=== PATIENT | female | born 1955 | race Caucasian/White ===

== ENCOUNTER 2020-02-20 14:56 | Outpatient (CLI) | payer MEDICARE, MEDICAID ==
[~2020-02-20] VITALS: Ht 170 cm; Wt 63.6 kg
[~2020-02-20 14:56] MED LIST: ASPI-808 PO; LEVO125T6 PO; MTP25TSR PO; MULT-1136 PO; SIMV80TA21 PO; TRZ50T PO; VENL150T PO
== END 2020-02-20 14:58 ==
LOC: PREOP 14:56
PROVIDERS: ATTEND Urology
DX: Z01.818 Encounter for other preprocedural examination (principal); N81.10 Cystocele, unspecified; R32 Unspecified urinary incontinence

== ENCOUNTER 2020-02-26 06:00 | Day surgery (SDC) | payer MEDICARE, MEDICAID ==
[2020-02-26] MEDS ORDERED: LACTATED RINGERS 1,000 ML IV ONE (06:30)
[2020-02-26] MEDS ORDERED: ONDANSETRON 4 MG/2 ML (SDV) Z0FRAN ONE ×2 (06:39→07:06)
[2020-02-26] MEDS ORDERED: cefTRIAXone 1,000 MG IV (ROCEPHIN) VIAL ONE (06:39)
[2020-02-26] MEDS ORDERED: WATER (STERILE) FOR INJECTION 10 ML ONE (06:39)
[2020-02-26] MEDS ORDERED: SCOPOLAMINE 1.5 MG (TRANSDERM-SCOP) PATCH ONE (06:39)
[2020-02-26] MEDS ORDERED: FAMOTIDINE 20MG/2ML IV (PEPCID) ONE (06:42)
[2020-02-26] MEDS ORDERED: ONDANSETRON 4 MG/2 ML (SDV) Z0FRAN IV ONE (06:46)
[2020-02-26] MEDS ORDERED: SCOPOLAMINE 1.5 MG (TRANSDERM-SCOP) PATCH TOP ONE (06:47)
[2020-02-26] MEDS ORDERED: FAMOTIDINE 20MG/2ML IV (PEPCID) IV ONE (07:00)
[2020-02-26] MEDS ORDERED: LIDOCAINE PF 2% 5 ML (XYLOCAINE) VIAL ONE (07:06)
[2020-02-26] MEDS ORDERED: fentaNYL INJECTION 100 MCG/2 ML AMP ONE ×2 (07:06→07:38)
[2020-02-26] MEDS ORDERED: MIDAZOLAM 2 MG/2 ML (VERSED) VIAL ONE (07:06)
[2020-02-26] MEDS ORDERED: proPOfol 200 MG/20 ML (DIPRIVAN) VIAL IV ONE (07:06)
[2020-02-26] MEDS ORDERED: KETOROLAC 30 MG/ML VIAL ONE (07:06)
[2020-02-26] MEDS ORDERED: SEVOFLURANE (ULTANE) 15 ML INHAL SOLN ONE ×4 (07:06→08:14)
[2020-02-26] MEDS ORDERED: ESTRADIOL VAGINAL CREAM 42.5 GM (ESTRACE) VG ONE ×2 (07:16→08:05)
[2020-02-26] MEDS ORDERED: LIDOCAINE/EPI 1%-1:100,000 (XYLOCAINE) 20ML ONE (07:16)
[2020-02-26] MEDS ORDERED: cefTRIAXone FOR IV USE 1,000 MG in WATER (STERILE) FOR INJECTION 10 ML IV ONE (07:30)
[2020-02-26] MEDS ORDERED: LIDOCAINE/EPI 1%-1:100,000 (XYLOCAINE) 20ML INJ ONE (07:44)
[2020-02-26] MEDS ORDERED: NEOSTIGMINE 3 MG/3 ML VIAL ONE (08:04)
[2020-02-26] MEDS ORDERED: GLYCOPYRROLATE 0.2 MG/ML (ROBINUL) 2 ML VIAL ONE (08:04)
[2020-02-26] MEDS ORDERED: LABETALOL HCL 20 MG/4 ML VIAL ONE (08:06)
[2020-02-26] MEDS ORDERED: ROCURONIUM 10 MG/ML 5 ML SYRINGE IV ONE (08:06)
[2020-02-26] MEDS ORDERED: D5 LR IV SOLUTION 1,000 ML IV ONE (14:31)
--- NOTE | 2020-02-26 20:49 | OPERATIVE REPORT ---
DATE OF SERVICE: 02/26/2020 PREOPERATIVE DIAGNOSIS: Cystocele and incontinence. POSTOPERATIVE DIAGNOSIS: Cystocele and incontinence. OPERATION PERFORMED: Anterior repair, pubovaginal sling and cystoscopy. SURGEON: Josiah Almodovar MD. ANESTHESIA: General. COMPLICATIONS: None. DESCRIPTION OF PROCEDURE: Under satisfactory general anesthesia and the patient in extended lithotomy position, genitalia were prepped and draped in the usual sterile fashion with a separate vaginal prep. Rogers catheter was inserted and the bladder was drained. A self-retaining retractor was applied. Noted a small benign looking lesion in the anterior vaginal wall. I excised it and sent it for pathology. There was also some nonabsorbable suture protruding from the vaginal wall and I removed them all. I infiltrated the anterior vaginal wall with lidocaine and epinephrine, made an incision vertically, carried down through to the fascia and extended laterally. The fascia was approximated with several interrupted 2-0 Vicryl giving excellent support to the bladder. Again, I made sure there was no leftover suture from the previous surgery. I then passed the Solyx device on both sides using the described technique. The sling was sitting nicely under the mid urethra with no twist or tension and passage of a hemostat easily between it and underlying tissue. I removed the Rogers catheter to perform cystoscopy to confirm the integrity of the bladder, ureteral orifices and urethra and no foreign body was visualized and feeding the sling under the mid urethra. I left the bladder at least half full to perform a manual Valsalva maneuver after removing the cystoscope and it was negative. I reinserted the Rogers catheter draining again clear fluid. I excised the excess tissue of the vaginal wall. I then approximated the anterior vaginal mucosa with a running 2-0 Vicryl Rapide type suture. Estrace two grams vaginal pack was inserted. Needle, sponge and instrument count was correct x2. Estimated blood loss was less than 50 mL, none of which was replaced. The patient tolerated the procedure and anesthesia well and was sent to the recovery room in a stable condition. Job ID: [id number] DocumentID: [id number] Dictated Date: 02/26/2020 08:26:42 Police Lieutenant Patrol Date: 02/26/2020 09:13:03 Dictated By: JOSIAH ALMODOVAR MD
[2020-02-27] MEDS ORDERED: D5 LR IV SOLUTION 1,000 ML IV ONE (03:54)
[2020-02-27] MEDS ORDERED: LEVOFLOXACIN 500 MG/D5W 100 ML (PRE-MIX) IV ONE ×2 (06:10→10:30)
--- NOTE | 2020-02-27 06:58 | Anesthesia-General Post-Op ---
General Patient Condition Mental Status/LOC: Same as Preop Cardiovascular: Satisfactory Nausea/Vomiting: Absent Respiratory: Satisfactory Pain: Controlled Complications: Absent Post Op Complications Complications None Follow Up Care/Instructions Patient Instructions None needed. Anesthesia/Patient Condition Patient Condition Patient is doing well, no complaints, stable vital signs, no apparent adverse anesthesia problems. No complications reported per nursing. D/C home per [facility] Criteria: Yes LAMONT PUCKETT CRNA Feb 27, 2020 06:58
[2020-02-27] MEDS ORDERED: SCOPOLAMINE 1.5 MG (TRANSDERM-SCOP) PATCH TOP SCH (07:00)
[2020-02-27 08:46] VITALS: BP 115/53
--- NOTE | 2020-02-27 10:00 | NUR ---
To room after pt reports voiding. Pt reports adequately emptying. 600ml clear yellow urine in hat. Bladder scan performed per this RN, 94ml residual noted.
[2020-02-27] MEDS ORDERED: FAMOTIDINE 20MG/2ML IV (PEPCID) IVP ONE (10:15)
[2020-02-27] MEDS ORDERED: ONDANSETRON 4 MG/2 ML (SDV) Z0FRAN IVP ONE (10:15)
[2020-02-27] MEDS ORDERED: HYDROcodone/APAP 5 MG/325 MG (LORTAB) TAB PO PRN (10:30)
[2020-02-27] MEDS ORDERED: D5 LR IV SOLUTION 1,000 ML IV SCH (10:30)
--- NOTE | 2020-02-27 10:51 | NUR ---
Pt up ambulating in hallways at this time.
--- NOTE | 2020-02-27 11:08 | NUR ---
Dr. Lerner called and updated on pt status. will come round on pt within the hr.
--- NOTE | 2020-02-27 12:00 | NUR ---
Dr Lerner here to see pt. Discharge orders rec'd.
--- NOTE | 2020-02-27 12:16 | Progress Note - Urology ---
Progress Note-Urology Progress Notes/Assess & Plan Progress/Assessment & Plan VOIDING AND EMPTYING WELL. DRY. HAPPY. HOME WITH INSTRUCTIONS Final Diagnosis CYSTOCELE AND INCONTINENCE BOB ALMODOVAR MD Feb 27, 2020 12:16
--- NOTE | 2020-02-27 12:18 | Discharge Inst-Urology ---
Discharge Inst-Urology Reconcile Patient Problems Problems Reviewed?: Yes Final Diagnosis CYSTOCELE AND INCONTINENCE Patient Instructions/Follow Up Plan/Assessment/Instructions Please make appointment to been seen in office in 2 weeks. Rest till then Keep bowels soft and moving Stay off ASA Showers no bath Increase oral fluids for 48 hours and then as needed. Diet as tolerated. If questions or concerns contact your physician Or seek help at emergency department. BOB ALMODOVAR MD Feb 27, 2020 12:18
--- NOTE | 2020-02-27 12:38 | NUR ---
Discharge instructions explained to pt with copy provided to pt along with prescription. Pt notified of follow up appt made. Pt verbalizes understanding of instructions and signs to verify. Denies questions or concerns.
--- NOTE | 2020-02-27 12:45 | NUR ---
Pt ambulates off unit to private vehicle with all personal belongings, accompanied by RN. No s/s of distress noted.
== END 2020-02-27 12:45 | disposition home or self-care (01) ==
LOC: SDC 06:00 → WS 02-27 07:38 → SDC 02-27 12:45
PROVIDERS: ATTEND Urology
DX: N81.10 Cystocele, unspecified (principal); N89.8 Other specified noninflammatory disorders of vagina; R32 Unspecified urinary incontinence; I10 Essential (primary) hypertension; E03.9 Hypothyroidism, unspecified; Z79.899 Other long term (current) drug therapy; Z88.5 Allergy status to narcotic agent; Z88.8 Allergy status to other drugs, medicaments and biological substances; Z90.710 Acquired absence of both cervix and uterus
CPT/HCPCS: 57240; 57288; 87081; 88305; 94664; C1771

== ENCOUNTER → 2021-05-24 | Outpatient (CLI) | payer MEDICARE, MEDICAID ==
--- NOTE | 2021-05-24 09:23 | Diagnostic Imaging Report ---
INDICATION: Right knee pain. COMPARISON: None available. TECHNIQUE: Three radiographs of the right knee dated 05/24/2021. FINDINGS: No acute fracture or dislocation. No destructive osseous process. Severe medial joint space narrowing with moderate osteophyte formation. Mild lateral joint space narrowing with minimal osteophyte formation. No significant knee joint effusion. Small superior patellar enthesophytes. No suspicious radiopaque foreign body. IMPRESSION: No acute osseous abnormality with moderate degenerative changes, greatest within the medial compartment. Dictated by: Dictated on workstation # [id number]
== END ==
LOC: RAD FS 09:04
PROVIDERS: ATTEND Nurse Practitioner
DX: M17.11 Unilateral primary osteoarthritis, right knee (principal)
CPT/HCPCS: 73562

== ENCOUNTER → 2021-12-08 | Outpatient (CLI) | payer MEDICARE, MEDICAID ==
[~2021-12-08] VITALS: Ht 170.2 cm; Wt 63.6 kg
[~2021-12-08] MED LIST changes: +ASPI81TA16 PO; +FLUT9.9S NS; +MIRA25TA PO
[2021-12-08 10:02] VITALS: BP 115/58
[2021-12-08 10:25] LABS: HEMATOCRIT 37 % (35-52); HEMOGLOBIN 12.6 g/dL (11.5-16.0); MEAN CORPUSCULAR HEMOGLOBIN 31 pg (25-34); MEAN CORPUSCULAR HGB CONC 34 g/dL (32-36); MEAN CORPUSCULAR VOLUME 91 fL (80-99); MEAN PLATELET VOLUME 9.4 fL (9.0-12.2); PLATELET COUNT 209 10^3/uL (130-400); WHITE BLOOD COUNT 4.7 10^3/uL (4.3-11.0)
[2021-12-08 10:35] LABS: BILIRUBIN,URINE NEGATIVE (NEGATIVE); CLARITY,URINE CLEAR; COLOR,URINE YELLOW; GLUCOSE, URINE (UA) NEGATIVE (NEGATIVE); KETONES,URINE NEGATIVE (NEGATIVE); LEUKOCYTE ESTERASE ,URINE TRACE (NEGATIVE); NITRITE,URINE NEGATIVE (NEGATIVE); PH,URINE 5.5 (5-9); PROTEIN,URINE 1+ (NEGATIVE)
[2021-12-08 10:48] LABS: PROTHROMBIN TIME PATIENT 13.8 SEC (12.2-14.7)
[2021-12-08 10:48] LABS: BACTERIA,URINE FEW /HPF
[2021-12-08 10:50] LABS: ALBUMIN 4.2 GM/DL (3.2-4.5); ERYTHROCYTE SEDIMENTATION RATE 16 MM/HR (0-30); POTASSIUM 3.8 MMOL/L (3.6-5.0)
[2021-12-08 10:52] LABS: CALCIUM 9.3 MG/DL (8.5-10.1)
[2021-12-08 10:53] LABS: TOTAL PROTEIN 6.9 GM/DL (6.4-8.2)
[2021-12-08 10:55] LABS: BILIRUBIN,TOTAL 0.4 MG/DL (0.1-1.0)
[2021-12-08 10:57] LABS: CREATININE SERUM 1.02 MG/DL (0.60-1.30)
--- NOTE | 2021-12-08 11:09 | Diagnostic Imaging Report ---
INDICATION: Preoperative total knee replacement. TIME OF EXAM: 10:49 AM No prior studies are available for comparison. Heart size is stable. Lungs show some hyperinflation consistent with COPD. There are postop changes in the left lung apex. There appears to be some interstitial scarring left mid and lower lung field. No infiltrate, effusion or pneumothorax is detected. IMPRESSION: Chronic changes. No acute abnormality is detected. Dictated by: Dictated on workstation # [id number]
== END ==
LOC: PREOP 08:26
PROVIDERS: ATTEND Orthopaedic Surgery
DX: Z01.818 Encounter for other preprocedural examination (principal); M17.11 Unilateral primary osteoarthritis, right knee
CPT/HCPCS: 36415; 71046; 80053; 81000; 82308; 85027; 85610; 85652; 86850; 86900; 86901; 87081; 87088; 93005

== ENCOUNTER 2021-12-15 05:54 | Inpatient (IN) | payer MEDICARE, MEDICAID ==
--- NOTE | 2021-12-09 07:04 | HISTORY AND PHYSICAL ---
DATE OF SERVICE: ADMISSION HISTORY AND PHYSICAL This will be for inpatient admission on 12/15/2021 for right total knee arthroplasty. The patient will require regular inpatient admission due to pain management, need for physical therapy and gait abnormalities. HISTORY OF PRESENT ILLNESS: The patient is a 66-year-old female with progressively worsening right knee pain. She reports activity limitations because of the knee. She has undergone treatment with injections, which provided relief only for a couple of weeks. She has undergone bilateral hip arthroplasty with good results. She denies recent injuries. Radiographs reveal severe medial and patellofemoral arthrosis. Due to functional impairment, the patient elected to proceed with surgical intervention. REVIEW OF SYSTEMS: No chest pain, no shortness of breath, no dysuria. PAST MEDICAL HISTORY: Brain aneurysm and hypertension. PAST SURGICAL HISTORY: Brain aneurysm and hip replacements. FAMILY HISTORY: Noncontributory. PRIMARY CARE PROVIDER: [facility]. MEDICATIONS: Metoprolol, levothyroxine, Effexor, trazodone, simvastatin, tramadol, Celebrex. ALLERGIES: DEMEROL AND MORPHINE. SOCIAL HISTORY: The patient denies tobacco use. Drinks alcohol occasionally. PHYSICAL EXAMINATION: GENERAL: The patient is a well-developed, well-nourished, in no acute distress. HEENT: Normocephalic, atraumatic. Pupils are equal, round, reactive lateral. Oropharynx is clear. NECK: Supple, no lymphadenopathy. LUNGS: Clear to auscultation bilaterally. HEART: Regular rate and rhythm. ABDOMEN: Soft, nontender, nondistended. EXTREMITIES: The right knee demonstrates varus alignment. She ambulates with an antalgic gait. Her range of motion is 0/4/120. There is no varus valgus laxity. Negative anterior and posterior drawer. IMPRESSION: Severe right knee osteoarthritis, unresponsive to conservative measures. PLAN: Right total knee arthroplasty. The risks, benefits, options, ramifications and recovery have been discussed at length with the patient. She understands and wishes to proceed. Job ID: [id number] DocumentID: [id number] Dictated Date: 11/29/2021 10:41:02 Soccer Coach Date: 11/29/2021 11:24:09 Dictated By: TRINO SANDOVAL MD
[~2021-12-15] VITALS: Ht 170 cm; Wt 63.6 kg
[2021-12-15] VITALS (12 sets, daily range): BP systolic 114–139; BP diastolic 48–64
[2021-12-15] MEDS: LACTATED RINGERS 1,000 ML IV PRN ×2 (06:30→08:05)
[2021-12-15] MEDS ORDERED: CEFUROXIME INJECTION 1,500 MG in NS (IVPB) 50 ML IV ONE (06:30)
[2021-12-15] MEDS ORDERED: fentaNYL INJ 100 MCG/2 ML AMP ONE (06:52)
[2021-12-15] MEDS ORDERED: LIDOCAINE PF 2% 5 ML (XYLOCAINE) VIAL ONE (06:52)
[2021-12-15] MEDS ORDERED: NEOSTIGMINE 3 MG/3 ML VIAL ONE (06:52)
[2021-12-15] MEDS ORDERED: proPOfol 200 MG/20 ML (DIPRIVAN) VIAL IV ONE (06:52)
[2021-12-15] MEDS ORDERED: ROCURONIUM 50 MG/5 ML (ZEMURON) VIAL IV ONE (06:52)
[2021-12-15] MEDS ORDERED: MIDAZOLAM 2 MG/2 ML (VERSED) VIAL ONE ×2 (06:52→08:25)
[2021-12-15] MEDS ORDERED: GLYCOPYRROLATE 0.2 MG/ML (ROBINUL) 2 ML VIAL ONE (06:52)
[2021-12-15] MEDS ORDERED: ONDANSETRON 4 MG/2 ML (SDV) Z0FRAN ONE (06:52)
[2021-12-15] MEDS ORDERED: TRANEXAMIC ACID 100 MG/ML 10 ML INJECTION ONE (06:53)
[2021-12-15] MEDS ORDERED: BUPIVACAINE 0.5% 30 ML (SENSORCAINE) VIAL ONE (06:54)
[2021-12-15] MEDS ORDERED: fentaNYL PCA 1,000 MCG/100 ML IV PRN (07:30)
[2021-12-15] MEDS ORDERED: ONDANSETRON 4 MG/2 ML (SDV) Z0FRAN IVP PRN ×2 (07:30→09:30)
[2021-12-15] MEDS ORDERED: NALOXONE 0.4 MG/ML 1 ML (NARCAN) VIAL IV PRN (07:30)
--- NOTE | 2021-12-15 07:37 | Progress Note-Post Operative ---
Post-Operative Progess Note Surgeon (s)/Ophthalmologist (s) Surgeon TRINO SANDOVAL MD Ophthalmologist: Armando Cooper Pre-Operative Diagnosis right knee primary osteoarthritis Post-Operative Diagnosis right knee primary osteoarthritis Procedure & Operative Findings Date of Procedure 12/15/21 Procedure Performed/Findings right total knee arthroplasty Anesthesia Type GETA Estimated Blood Loss Estimated blood loss (mL): minimal Specimens/Packing Specimens Removed none Packing: none TRINO SANDOVAL MD Dec 15, 2021 07:37
--- NOTE | 2021-12-15 07:37 | Progress Note-Pre Operative ---
Pre-Operative Progress Note H&P Reviewed The H&P was reviewed, patient examined and no changes noted. Date Seen by Provider: Dec 15, 2021 Time Seen by Provider: 07:25 Date H&P Reviewed: Dec 15, 2021 Time H&P Reviewed: 07:11 Pre-Operative Diagnosis: right knee primary osteoarthritis TRINO SANDOVAL MD Dec 15, 2021 07:36
--- NOTE | 2021-12-15 07:40 | D/C HH Face to Face Order ---
D/C Face to Face Orders Reconcile Patient Problems Problems Reviewed?: Yes Instructions for Patient Via [facility], Patient Instructions/FollowUp: three weeks Physician to follow Patient: three weeks Discharge Diet for Home: Regular Diet Patient Data-Allergies,Ht & Wt Patient Allergies: Coded Allergies: meperidine (Verified Allergy, Severe, ARM SWELLED, 02/20/20) morphine (Verified Allergy, Mild, N/V, 02/20/20) Home Health Need/Face to Face Date of Face to Face: Dec 15, 2021 Clinical Findings: Muscle weakness, Pain with ambulation I have seen Pt [id number]: Yes Discharged To: Home Diagnosis/Conditions: right total knee arthroplasty Patient is Homebound due to: Muscle weakness, Pain w/ambulation Homebound Status Due to the above stated illness, injury or surgical procedure (medical condition or diagnosis) and associated clinical findings, the patient is homebound because of his/her inability to leave home except with aid of a supportive device and/or person AND leaving the home requires a considerable and taxing effort or is medically contraindicated. Pt req the following assistanc: Walker [facility] Health Nursing Orders Home Health Services Order: Physical Therapy-Evaluate & Treat DC right knee sai and apply steri strips 12/29/21 Home Health Infusion Therapy Line Start Date: Dec 15, 2021 Therapy Orders Therapy Orders: Physical Therapy, PT to assess for OT Therapy Specific Orders: Eval assistive deivces, Teach enviro modifications/safety, Gait training, Increase strength/endurance, Provider maintenance therapy, Restore ROM Certify Stmt I certify that this patient is under my care and that I, a nurse practitioner or a physician; a customer care assistant working with me, had a face to face encounter that - meets the physician face to face encounter requirements with this patient as dated. TRINO SANDOVAL MD Dec 15, 2021 07:40
[2021-12-15] MEDS ORDERED: INTRA-ARTICULAR IU ONE ×5 (08:00)
[2021-12-15] MEDS ORDERED: ESMOLOL 100 MG/10 ML (BREVIBLOC) VIAL ONE (08:13)
[2021-12-15] MEDS ORDERED: PROPOFOL INJECTION 50 ML IV ONE (08:36)
--- NOTE | 2021-12-15 09:54 | Progress Note ---
Standard Progress Note Progress Notes/Assess & Plan Date Seen by a Provider: Dec 15, 2021 Time Seen by a Provider: 09:53 Progress/Assessment & Plan no complaints Spinal in effect radiographs--HW well positioned without fracture RLE--2 plus DP pulse with brick cap refill s/p RTKA mobilize as able TRINO SANDOVAL MD Dec 15, 2021 09:54
--- NOTE | 2021-12-15 09:57 | Diagnostic Imaging Report ---
INDICATION: Right knee surgery. Time of Exam: 9:28 AM 2 views right knee redemonstrate postoperative changes total knee arthroplasty. Prosthetic elements appear to be in good position. No fracture or loosening is seen. Overlying skin sai are noted. IMPRESSION: Satisfactory postop appearance to the right knee. Dictated by: Dictated on workstation # [id number]
[2021-12-15] MEDS: SENNA W/DOCUSATE (SENOKOT S) TABLET PO SCH ×2 (12:04→20:28)
[2021-12-15] MEDS: NS IV 1000 ML 1,000 ML IV SCH ×3 (12:04→23:37)
--- NOTE | 2021-12-15 13:46 | Physical Therapy Evaluation ---
PT Evaluation-General Medical Diagnosis Admission Date Dec 15, 2021 at 05:54 Medical Diagnosis: right TKA Onset Date: Dec 15, 2021 Therapy Diagnosis Therapy Diagnosis: impaired mobility, strength, endurance Precautions Precautions/Isolations: Fall Prevention, Standard Precautions Weight Bear Status Right Lower Extremity: Right Weight Bearing/Tolerated Referral Physician: Kenneth Reason for Referral: Evaluation/Treatment Medical History Additional Medical History PAST MEDICAL HISTORY: Brain aneurysm and hypertension. PAST SURGICAL HISTORY: Brain aneurysm and hip replacements. Reviewed History: Yes Social History Current Living Status: Alone Entry Into Home: Level Entry Prior Prior Level of Function SCALE: Activities may be completed with or without assistive devices. 2-Rzitkoirbw-jwdvtci completes the activity by him/herself with no assistance from a helper. 5-Set-up or Clean-up Assistance-helper sets up or cleans up; patient completes activity. Admire assists only prior to or following the activity. 4-Supervision or Touching Assistance-helper provides verbal cues and/or touching/steadying and/or contact guard assistance as patient completes activity. Assistance may be provided throughout the activity or intermittently. 3-Partial/Moderate Assistance-helper does LESS THAN HALF the effort. Admire lifts, holds or supports trunk or limbs, but provides less than half the effort. 2-Substantial/Maximal Assistance-helper does MORE THAN HALF the effort. Admire lifts or holds trunk or limbs and provides more than half the effort. 6-Oukmbsflr-feghyx does ALL the effort. Patient does none of the effort to complete the activity. Or, the assistance of 2 or more helpers is required for the patient to complete the activity. If activity was not attempted, code reason: 7-Patient Refused. 9-Not Applicable-not attempted and the patient did not perform the activity before the current illness, exacerbation or injury. 10-Not Attempted due to Environmental Limitations-(lack of equipment, weather restraints, etc.). 88-Not Attempted due to Medical Conditions or Safety Concerns. Bed Mobility: 6 Transfers (B,C,W/C): 6 Gait: 6 Stairs: 6 Indoor Mobility (Ambulation): Independent Stairs: Independent PT Evaluation-Current Subjective Patient in bed pre tx, agrees to PT, has no pain at rest. Patient has had a spinal and nerve block (per patient) Pt/Family Goals to be independent at home Objective Patient Orientation: Person, Place, Situation Attachments: IV ROM/Strength ROM Lower Extremities right knee flexion 90 degrees, has full extension Sensory Hearing: Functional Sensation Right Lower Extremit: Impaired Sensation Left Lower Extremity: Impaired Transfers Roll Left to Right (QC): 6 Sit to Lying (QC): 3 Lying to Sitting/Side of Bed(Q: 3 Patient needed min to mod assist for supine <-> sit, she was not able to stand yet, neither leg could support any weight Balance Sitting Static: Normal Sitting Dynamic: Normal Treatment RLE total knee protocol x10 (AP, HS, SAQ, SLR), AAROM with all exercises Assessment/Needs Patient in bed post tx with nurse call, phone, tray, all needs met. Patient has impaired mobility, strength, endurance. Her spinal and nerve block need to wear off before she is going to be able to get out of bed. Rehab Potential: Fair PT Retirement Goals Operations Dispatcher Goals PT Retirement Goals Time Frame: Dec 22, 2021 Roll Left & Right (QC): 6 Sit to Lying (QC): 6 Lying-Sitting on Side/Bed(QC): 6 Sit to Stand (QC): 4 Chair/Mfc-co-Kcqwl Xfer(QC): 4 Walk 10 feet (QC): 4 Walk 50ft with 2 Turns (QC): 4 Walk 150 ft (QC): 4 PT Plan Problem List Problem List: Activity Tolerance, Functional Strength, Safety, Balance, Gait, Transfer, Bed Mobility, ROM Treatment/Plan Treatment Plan: Continue Plan of Care Treatment Plan: Bed Mobility, Education, Functional Activity Merrill, Functional Strength, Gait, Safety, Therapeutic Exercise, Transfers Treatment Duration: Dec 22, 2021 Frequency: 11 times per week Estimated Hrs Per Day: .25 hour per day Patient and/or Family Agrees t: Yes Safety Risks/Education Patient Education: Correct Positioning, Safety Issues Teaching Recipient: Patient Teaching Methods: Demonstration, Discussion Response to Teaching: Reinforcement Needed Discharge Recommendations Plan Patient will perform bed mobility and transfer training, balance and endurance training, functional strengthening, stair training, gait training, and education, to improve functional mobility and independence at home. Therapy Discharge Recommendati: Home & Family, Post Acute PT Time/GCodes Time In: 1306 Time Out: 1318 Total Billed Treatment Time: 12 Total Billed Treatment 1 visit OLGA DHILLON PT Dec 15, 2021 13:46
[2021-12-15] MEDS: CEFUROXIME INJECTION 750 MG in NS (IVPB) 50 ML IV SCH ×2 (15:31→23:28)
--- NOTE | 2021-12-15 16:02 | OPERATIVE REPORT ---
DATE OF SERVICE: 12/15/2021 PREOPERATIVE DIAGNOSIS: Right knee primary osteoarthritis. POSTOPERATIVE DIAGNOSIS: Right knee primary osteoarthritis. PROCEDURE: Right total knee arthroplasty. SURGEON: Alli Sandoval MD MEDICAL ONCOLOGY PHYSICIAN: Armando Cooper, who assisted throughout the procedure and closed by Dr. Falcon. TOURNIQUET TIME: Approximately 56 minutes at 300 mmHg. ESTIMATED BLOOD LOSS: Minimal. DRAINS: None. COMPLICATIONS: None. POSTOPERATIVE PLAN: Routine total knee arthroplasty protocol. MATERIALS: Microport cemented size 4 femur, cemented size 4 tibia with a 10 mm insert and cemented size 32 patellar button. STATEMENT OF MEDICAL NECESSITY: The patient is a 66-year-old female with longstanding progressive right knee pain. Radiographs revealed severe medial and patellofemoral arthrosis. She had undergone treatment with injections, anti-inflammatories and rest without relief. Due to functional impairment and failure to improve with conservative measures, the patient elected to proceed with surgical intervention. DESCRIPTION OF PROCEDURE: After risks and benefits of procedure were discussed and questions were answered, an informed consent was signed and placed on chart. The operative site was confirmed in the preoperative holding area initialed by the surgeon. The patient was then transferred to the operating room. After adequate levels of general endotracheal anesthetic were obtained, a timeout was called, confirming the operative site. Right lower extremity was prepped and draped in the usual sterile fashion. Knee joint was flexed and the leg was elevated, tourniquet was inflated to 300 mmHg. Standard anterior approach was utilized. Hemostasis was obtained with cautery. A medial parapatellar arthrotomy was performed leaving 1 cm cuff on the patella for later reattachment. A portion of the fat pad was resected. A subperiosteal release was performed on the proximal medial tibia being careful to stay on the bony surface. The ACL was resected. Intramedullary guide was passed into the femoral canal. The distal cutting block was placed, and distal cut was made. The femur sized to a size 4. The 4 cutting block was placed parallel to the epicondylar axis and cuts were made from posterior to anterior. Subperiosteal release was then carefully performed on the posterior distal femur, being careful to stay on the bony surface. Intramedullary guide was then passed into the tibia. Cutting block was placed. Drop amandeep transected the intermalleolar axis and the cut was made. The 4 cutting block was placed. Again, the drop amandeep transected the intermalleolar axis and the proximal tibia was prepared with the drill and keel punch. A subperiosteal release was performed on the posterior distal femur, being careful to stay on the bony surface with curved osteotome prior to prepping the tibia. The femoral trial was placed and the trochlear cut was made. The patella was then prepared by resecting 10 mm off the undersurface. The peg guide was placed. The peg holes were drilled. Trials were inserted with 10 mm insert and 35 button. Full extension was easily obtained under 20 degrees of flexion with gravity was easily obtained. There was no anterior/posterior or medial/lateral laxity in flexion or extension. The trials were removed. The joint was irrigated with pulse lavage. The periarticular block was placed in the posterior capsule, medial and lateral retinaculum extensor mechanism subcutaneous tissues. The joint was further irrigated. Bone ends were irrigated and dried. The tibial baseplate was cemented into position. The superior surface was irrigated and dried and the polyethylene insert was placed. Distal femur was irrigated and dried and the femoral prosthesis was cemented into position. Excessive cement was removed. The knee was brought out into full extension until the cement had cured. The undersurface of the patella was irrigated and dried. The patellar button was cemented into position. Excessive cement was removed. Once cement had cured, the knee was taken through range of motion. Full extension was easily obtained under 20 degrees of flexion with gravity was easily obtained. There was no anterior/posterior or medial/lateral laxity in flexion or extension and the patella tracked well. The joint was further irrigated with pulse lavage. A #2 Tevdek was used to reapproximate the arthrotomy in vuzxeh-kg-gdalp interrupted fashion. Subcutaneous tissues were irrigated. The knee was flexed. The repair was stable. A total of 6 liters of pulse lavage were used throughout the procedure. A 0 Vicryl was used to deep subcutaneous layer, 2-0 Vicryl for the superficial subcutaneous layer, sai used on the skin. A soft dressing was applied. The tourniquet was deflated. The patient was transferred to the recovery room awake and in stable condition. Job ID: [id number] DocumentID: [id number] Dictated Date: 12/15/2021 09:31:42 Elevator Erector Helper Date: 12/15/2021 16:01:45 Dictated By: ALLI SANDOVAL MD
[2021-12-15] MEDS: oxyCODONE/APAP 5/325MG (PERCOCET 5) TABLET PO PRN ×2 (18:25→20:28)
[2021-12-15] MEDS: diphenhydrAMINE 50 MG/ML INJ (BENADRYL) IVP PRN (23:28)
[2021-12-16 00:14] VITALS: BP 108/57
[2021-12-16] MEDS: oxyCODONE/APAP 5/325MG (PERCOCET 5) TABLET PO PRN ×8 (02:24→22:55)
[2021-12-16 03:48] VITALS: BP 125/57
[2021-12-16 06:33] LABS: HEMOGLOBIN 9.6 g/dL (11.5-16.0)
[2021-12-16 07:44] VITALS: BP 139/66
--- NOTE | 2021-12-16 08:05 | Progress Note ---
Standard Progress Note Progress Notes/Assess & Plan Date Seen by a Provider: Dec 16, 2021 Time Seen by a Provider: 08:04 Progress/Assessment & Plan no complaints Spinal in effect radiographs--HW well positioned without fracture RLE--2 plus DP pulse with brick cap refill s/p RTKA mobilize as able Final Diagnosis no complaints Vital Signs Date Time Temp Pulse Resp B/P (MAP) Pulse Ox O2 Delivery O2 Flow Rate FiO2 12/16/21 07:44 37.2 95 18 139/66 (90) 94 Room Air 12/16/21 03:48 37.1 102 20 125/57 (79) 92 Room Air 12/16/21 00:14 36.5 92 18 108/57 (74) 95 Room Air 12/15/21 20:15 Room Air 12/15/21 19:34 36.7 87 18 128/60 (82) 97 Room Air 12/15/21 16:03 36.6 73 20 134/64 (87) 98 Room Air 12/15/21 12:05 35.9 70 20 124/59 (80) 98 Room Air 12/15/21 10:44 36.0 78 20 126/60 (82) 98 Room Air 12/15/21 10:20 Room Air 12/15/21 10:20 36.1 20 119/60 (79) 100 Room Air 12/15/21 10:15 Room Air 12/15/21 10:10 20 121/52 (75) 100 Room Air 12/15/21 10:00 Room Air 12/15/21 10:00 20 128/57 (80) 100 Room Air 12/15/21 09:50 20 121/56 (77) 100 Room Air 12/15/21 09:45 Room Air 12/15/21 09:40 20 114/48 (70) 99 Room Air 12/15/21 09:30 Room Air 12/15/21 09:30 20 126/53 (77) 98 Room Air 12/15/21 09:18 Room Air 12/15/21 09:18 36.1 20 122/54 (76) 100 Room Air I & O 12/16/21 07:00 Intake Total 4140 ml Output Total 950 ml Balance 3190 ml Laboratory Tests Test 12/16/21 06:09 Range/Units Hemoglobin 9.6 L 11.5-16.0 g/dL Hematocrit 29 L 35-52 % RLE--dressing intact. Intact DF and PF of toes and ankle. Sensation intact throughout s/p RTKA PT/OT TRINO SANDOVAL MD Dec 16, 2021 08:05
--- NOTE | 2021-12-16 08:45 | Physical Therapy Daily Note ---
PT Daily Note-Current Subjective Patient in recliner pre tx, agrees to PT, has 7/10 pain in right knee. Appearance Patient in recliner post tx with nurse call, phone, tray, all needs met. Mental Status Patient Orientation: Person, Place, Situation Attachments: Polar Pack, IV Transfers SCALE: Activities may be completed with or without assistive devices. 9-Tfsjznouto-widppaw completes the activity by him/herself with no assistance from a helper. 5-Set-up or Clean-up Assistance-helper sets up or cleans up; patient completes activity. [place] assists only prior to or following the activity. 4-Supervision or Touching Assistance-helper provides verbal cues and/or touching/steadying and/or contact guard assistance as patient completes activit y. Assistance may be provided throughout the activity or intermittently. 3-Partial/Moderate Assistance-helper does LESS THAN HALF the effort. [place] lifts, holds or supports trunk or limbs, but provides less than half the effort. 2-Substantial/Maximal Assistance-helper does MORE THAN HALF the effort. [place] lifts or holds trunk or limbs and provides more than half the effort. 2-Mhdadjinh-oscxrt does ALL the effort. Patient does none of the effort to complete the activity. Or, the assistance of 2 or more helpers is required for the patient to complete the activity. If activity was not attempted, code reason: 7-Patient Refused. 9-Not Applicable-not attempted and the patient did not perform the activity before the current illness, exacerbation or injury. 10-Not Attempted due to Environmental Limitations-(lack of equipment, weather restraints, etc.). 88-Not Attempted due to Medical Conditions or Safety Concerns. Sit to Stand (QC): 4 Chair/Dma-sf-Ptbzh Xfer(QC): 4 Weight Bearing Right Lower Extremity: Right Weight Bearing/Tolerated Gait Training Distance: 40' Walk 10 feet (QC): 4 Gait Persons Needed: 1 Gait Assistive Device: FWW slow, antalgic, decreased right knee flexion Exercises Supine Ex: Ankle pumps, Quad Set, Heel Slides (AAROM), Straight leg raise (AAROM) Supine Reps: 10 (done in recliner with legs elevated) Seated Therapy Exercises: Long arc quads Seated Reps: 10 Treatments transfers, ambulation, TKA exercise Assessment Current Status: Fair Progress spinal has worn off and patient can now bear weight on her legs and ambulate, increased pain though PT Air Brake Operator Goals Air Brake Operator Goals PT Air Brake Operator Goals Time Frame: Dec 22, 2021 Roll Left & Right (QC): 6 Sit to Lying (QC): 6 Lying-Sitting on Side/Bed(QC): 6 Sit to Stand (QC): 4 Chair/Tbv-qm-Ometn Xfer(QC): 4 Walk 10 feet (QC): 4 Walk 50ft with 2 Turns (QC): 4 Walk 150 ft (QC): 4 PT Plan Problem List Problem List: Activity Tolerance, Functional Strength, Safety, Balance, Gait, Transfer, Bed Mobility, ROM Treatment/Plan Treatment Plan: Continue Plan of Care Treatment Plan: Bed Mobility, Education, Functional Activity [place], Functional Strength, Gait, Safety, Therapeutic Exercise, Transfers Treatment Duration: Dec 22, 2021 Frequency: 11 times per week Estimated Hrs Per Day: .25 hour per day Patient and/or Family Agrees t: Yes Safety Risks/Education Patient Education: Gait Training, Transfer Techniques, Correct Positioning, Safety Issues Teaching Recipient: Patient Teaching Methods: Demonstration, Discussion Response to Teaching: Reinforcement Needed Time/GCodes Time In: 08 Time Out: 08 Total Billed Treatment Time: 16 Total Billed Treatment 1 visit FA OLGA VALLE PT Dec 16, 2021 08:44
[2021-12-16] MEDS: ASPIRIN E.C. 81 MG (ECOTRIN) TAB PO SCH (08:53)
[2021-12-16] MEDS: SENNA W/DOCUSATE (SENOKOT S) TABLET PO SCH ×2 (08:53→20:37)
[2021-12-16] MEDS: ENOXAPARIN INJECTION 30 MG/0.3 ML SYR SC SCH ×2 (08:54→20:38)
--- NOTE | 2021-12-16 09:50 | Occupational Therapy Eval ---
OT Evaluation-General/PLF Medical Diagnosis Admission Date Dec 15, 2021 at 05:54 Medical Diagnosis: right TKA Onset Date: Dec 15, 2021 Therapy Diagnosis Therapy Diagnosis: reduced adl status Precautions Precautions/Isolations: Fall Prevention, Standard Precautions Referral Physician: Kenneth Persaud Reason: Evaluation/Treatment Medical History Pertinent Medical History: HTN Additional Medical History brain aneurysm Current History post op day 1, s/p R TKA. Per patient, she lives alone in an entry level account representative apartment. She was indep with adls and iadls prior to admission. She was not using any AD at baseline. Reviewed History: Yes Social History Home: Apartment Current Living Status: Alone Entry Into Home: Level Entry ADL-Prior Level of Function SCALE: Activities may be completed with or without assistive devices. 1-Qhtmdlpokm-kxajvav completes the activity by him/herself with no assistance from a helper. 5-Set-up or Clean-up Assistance-helper sets up or cleans up; patient completes activity. [place] assists only prior to or following the activity. 4-Supervision or Touching Assistance-helper provides verbal cues and/or touching/steadying and/or contact guard assistance as patient completes activity. Assistance may be provided throughout the activity or intermittently. 3-Partial/Moderate Assistance-helper does LESS THAN HALF the effort. [place] lif ts, holds or supports trunk or limbs, but provides less than half the effort. 2-Substantial/Maximal Assistance-helper does MORE THAN HALF the effort. [place] lifts or holds trunk or limbs and provides more than half the effort. 2-Sytsxcxei-dzuuvz does ALL the effort. Patient does none of the effort to complete the activity. Or, the assistance of 2 or more helpers is required for the patient to complete the activity. If activity was not attempted, code reason: 7-Patient Refused. 9-Not Applicable-not attempted and the patient did not perform the activity before the current illness, exacerbation or injury. 10-Not Attempted due to Environmental Limitations-(lack of equipment, weather restraints, etc.). 88-Not Attempted due to Medical Conditions or Safety Concerns. Self Care: Independent Functional Cognition: Independent DME/Equipment: Bath Chair, Shower Drive Self: Yes OT Current Status Subjective Pt grimacing in pain at OT arrival; 02/16. RN in to deliver meds. Appearance Pt left sitting in recliner, all needs within reach. Mental Status/Objective Patient Orientation: Person, Place, Situation extra time for processing/responding Attachments: IV, Telemetry Current Glasses/Contacts: Yes Upper Extremity ROM WNL Upper Extremity Strength 3+/5 grossly ADL-Treatment Eating (QC): 6 Oral Hygiene (QC): 5 Pt grimacing in pain at OT arrival. She is tearful when situating self in recliner. Post set up, she was able to wash face, comb hair and brush teeth. Due to pain, pt declined any transfers or adls that would cause her to use RLE (LB dressing). Per physical therapy note, pt was CGA to stand. OT educated pt on care of incision during bathing tasks post discharge. Further education may be needed. She verbalizes that she will have her sister bring in all of her AE that she purchased in order to practice (if needed post discharge). Plan to assess LB dressing next session and determine if AE will be needed. Education OT Patient Education: Correct positioning, Purpose of tx/functional activities, Safety issues Teaching Recipient: Patient Teaching Methods: Discussion Response to Teaching: Verbalize Understanding, Reinforcement Needed OT Satellite Dish Repairer Goals Correction Goals Time Frame: Dec 25, 2021 Toileting Hygiene (QC): 4 Upper Body Dressing (QC): 5 Lower Body Dressing (QC): 4 On/Off Footwear (QC): 4 1=Demonstrate adherence to instructed precautions during ADL tasks. 2=Patient will verbalize/demonstrate understanding of assistive devices/modifications for ADL. 3=Patient will improve strength/tolerance for activity to enable patient to perform ADL's. OT Education/Plan Problem List/Assessment Assessment: Decreased Activ Tolerance, Decreased UE Strength, Impaired Cognition, Impaired Funct Balance, Impaired I ADL's, Impaired Self-Care Skills Discharge Recommendations Plan/Recommendations: Continue POC Treatment Plan/Plan of Care Treatment,Training & Education: Yes Patient would benefit from OT for education, treatment and training to promote independence in ADL's, mobility, safety and/or upper extremity function for ADL's. Plan of Care: ADL Retraining, Functional Mobility, Group Exercise/Act as Ind, UE Funct Exercise/Act Treatment Duration: Dec 25, 2021 Frequency: 5 times per week Estimated Hrs Per Day: .25 hour per day Agreement: Yes Rehab Potential: Fair Time/GCodes Start Time: 08:54 Stop Time: 09:09 Total Time Billed (hr/min): 15 Billed Treatment Time 1 visit Estefania Wyatt OT Dec 16, 2021 09:50
--- NOTE | 2021-12-16 11:00 | Physical Therapy Daily Note ---
PT Daily Note-Current Subjective Patient in recliner pre tx, agrees to PT, has 5/10 pain in right knee. Appearance Patient in recliner post tx with nurse call, phone, tray, all needs met. Mental Status Patient Orientation: Person, Place, Situation Attachments: Polar Pack, IV Transfers SCALE: Activities may be completed with or without assistive devices. 3-Fuqagbpqvi-acjjtyv completes the activity by him/herself with no assistance from a helper. 5-Set-up or Clean-up Assistance-helper sets up or cleans up; patient completes activity. [place] assists only prior to or following the activity. 4-Supervision or Touching Assistance-helper provides verbal cues and/or touching/steadying and/or contact guard assistance as patient completes activit y. Assistance may be provided throughout the activity or intermittently. 3-Partial/Moderate Assistance-helper does LESS THAN HALF the effort. [place] lifts, holds or supports trunk or limbs, but provides less than half the effort. 2-Substantial/Maximal Assistance-helper does MORE THAN HALF the effort. [place] lifts or holds trunk or limbs and provides more than half the effort. 7-Sykyetxtt-mzoyoe does ALL the effort. Patient does none of the effort to complete the activity. Or, the assistance of 2 or more helpers is required for the patient to complete the activity. If activity was not attempted, code reason: 7-Patient Refused. 9-Not Applicable-not attempted and the patient did not perform the activity before the current illness, exacerbation or injury. 10-Not Attempted due to Environmental Limitations-(lack of equipment, weather restraints, etc.). 88-Not Attempted due to Medical Conditions or Safety Concerns. Sit to Stand (QC): 4 Chair/Ehv-pf-Csnac Xfer(QC): 4 SBA Weight Bearing Right Lower Extremity: Right Weight Bearing/Tolerated Gait Training Distance: 60' Walk 10 feet (QC): 4 Gait Persons Needed: 1 Gait Assistive Device: FWW slow, antalgic, stiff right knee, keeps it slightly flexed during ambulation Exercises Supine Ex: Quad Set Supine Reps: 15 (done in recliner with legs elevated) Seated Therapy Exercises: Ankle pumps, Long arc quads, Hamstring Curls Seated Reps: 15 Treatments transfers, ambulation, LE TKA exercises Assessment Current Status: Fair Progress improved pain, patient limits ROM due to pain still PT Store Administrator Goals Store Administrator Goals PT Store Administrator Goals Time Frame: Dec 22, 2021 Roll Left & Right (QC): 6 Sit to Lying (QC): 6 Lying-Sitting on Side/Bed(QC): 6 Sit to Stand (QC): 4 Chair/Ckp-iw-Rtxid Xfer(QC): 4 Walk 10 feet (QC): 4 Walk 50ft with 2 Turns (QC): 4 Walk 150 ft (QC): 4 PT Plan Problem List Problem List: Activity Tolerance, Functional Strength, Safety, Balance, Gait, Transfer, Bed Mobility, ROM Treatment/Plan Treatment Plan: Continue Plan of Care Treatment Plan: Bed Mobility, Education, Functional Activity [place], Functional Strength, Gait, Safety, Therapeutic Exercise, Transfers Treatment Duration: Dec 22, 2021 Frequency: 11 times per week Estimated Hrs Per Day: .25 hour per day Patient and/or Family Agrees t: Yes Safety Risks/Education Patient Education: Gait Training, Transfer Techniques, Correct Positioning, Safety Issues Teaching Recipient: Patient Teaching Methods: Demonstration, Discussion Response to Teaching: Reinforcement Needed Time/GCodes Time In: 1036 Time Out: 1052 Total Billed Treatment Time: 16 Total Billed Treatment 1 visit FA 16OLGA GARCIA PT Dec 16, 2021 11:00
[2021-12-16 12:00] VITALS: BP 133/58
[2021-12-16] MEDS: NS IV 1000 ML 1,000 ML IV SCH ×2 (13:30→20:49)
--- NOTE | 2021-12-16 14:06 | Consultation ---
HPI History of Present Illness: Asked to see the patient after Right total knee. Patient states that she takes medications for HTN, depression, and HTN. States that she has not had any recent medication changes. Denies any heart or lung problems. States that she is feeling ok this morning but she is having quite a bit of pain in her knee. States that her polar ice machine came off overnight and she is having more swelling. Source: patient, family (sister) Exam Limitations: no limitations Date seen by provider: Dec 16, 2021 Time Seen by Provider: 11:00 Attending Physician [place] PCP Admitting Physician: Alli Cameron MD Attending Physician: Alli Cameron MD Consult Date of Admission Dec 15, 2021 at 05:54 Home Medications Home Medications Reviewed patient Home Medication Reconciliation performed by pharmacy medication reconciliations paint technician and/or nursing. Patients Allergies have been reviewed. Allergies Coded Allergies: meperidine (Verified Allergy, Severe, ARM SWELLED, 02/20/20) morphine (Verified Allergy, Mild, N/V, 02/20/20) HGG-Jjrwuc-Ojclrs Hx Patient Social History Living Status: lives home independently 2nd Hand Smoke Exposure: Yes Recent Hopitalizations: No (JUL 2021 LEFT HIP) Alcohol Use?: No Have you traveled recently?: No Immunizations Up To Date First/Initial COVID19 Vaccinat: 2020 Second COVID19 Vaccination Tad: 2020 Third COVID19 Vaccination Date: 2020 Past Medical History HTN Depression Levothyroixine Family Medical History Significant Family History: No Pertinent Family Hx Review of Systems ([facility]) Constitutional: no symptoms reported; No fever EENTM: no symptoms reported Respiratory: no symptoms reported; No cough, No dyspnea on exertion Cardiovascular: no symptoms reported; No chest pain, No edema Gastrointestinal: no symptoms reported; No abdominal pain, No loss of appetite, No nausea, No vomiting Genitourinary: frequency, incontinence Musculoskeletal: joint pain Skin: no symptoms reported Psychiatric/Neurological: No Symptoms Reported Reviewed Test Results Reviewed Test Results Lab Laboratory Tests Test 12/16/21 06:09 Range/Units Hemoglobin 9.6 L 11.5-16.0 g/dL Hematocrit 29 L 35-52 % Physical Exam-([facility]) Physical Exam Vital Signs VS - Last 72 Hours, by Label 12/15/21 12/15/21 12/15/21 12/15/21 06:30 06:30 06:30 09:18 Temp 36.1 36.1 36.1 Pulse 75 75 Resp 18 18 20 B/P (MAP) 139/62 (87) 139/62 (87) 122/54 (76) Pulse Ox 99 99 99 100 O2 Delivery Room Air Room Air Room Air 12/15/21 12/15/21 12/15/21 12/15/21 09:18 09:30 09:30 09:40 Resp 20 20 B/P (MAP) 126/53 (77) 114/48 (70) Pulse Ox 98 99 O2 Delivery Room Air Room Air Room Air Room Air 12/15/21 12/15/21 12/15/21 12/15/21 09:45 09:50 10:00 10:00 Resp 20 20 B/P (MAP) 121/56 (77) 128/57 (80) Pulse Ox 100 100 O2 Delivery Room Air Room Air Room Air Room Air 12/15/21 12/15/21 12/15/21 12/15/21 10:10 10:15 10:20 10:20 Temp 36.1 Resp 20 20 B/P (MAP) 121/52 (75) 119/60 (79) Pulse Ox 100 100 O2 Delivery Room Air Room Air Room Air Room Air 12/15/21 12/15/21 12/15/21 12/15/21 10:44 12:05 16:03 19:34 Temp 36.0 35.9 36.6 36.7 Pulse 78 70 73 87 Resp 20 20 20 18 B/P (MAP) 126/60 (82) 124/59 (80) 134/64 (87) 128/60 (82) Pulse Ox 98 98 98 97 O2 Delivery Room Air Room Air Room Air Room Air 12/15/21 12/16/21 12/16/21 12/16/21 20:15 00:14 03:48 07:44 Temp 36.5 37.1 37.2 Pulse 92 102 95 Resp 18 20 18 B/P (MAP) 108/57 (74) 125/57 (79) 139/66 (90) Pulse Ox 95 92 94 O2 Delivery Room Air Room Air Room Air Room Air 12/16/21 12/16/21 09:00 12:00 Temp 36.8 Pulse 100 Resp 18 B/P (MAP) 133/58 (83) Pulse Ox 90 O2 Delivery Room Air Room Air Capillary Refill : Less Than 3 Seconds General Appearance: WD/WN, no apparent distress HEENT: PERRL/EOMI Neck: non-tender, full range of motion, supple Respiratory: chest non-tender, lungs clear, normal breath sounds, no respiratory distress, no accessory muscle use Cardiovascular: normal peripheral pulses, regular rate, rhythm, no murmur Gastrointestinal: normal bowel sounds, non tender, soft Back: no CVA tenderness Extremities: other (polar ice machine on right knee, mild swelling in foot and calf) Neurologic/Psychiatric: trainer II-XII nml as tested, alert, oriented x 3 Skin: normal color, warm/dry Lymphatic: no adenopathy Assessment/Plan Assessment/Plan (1) Osteoarthritis of right knee Status: Acute Assessment & Plan: - POD #1, right total knee, Thank you for the medical consultation (2) Anemia due to acute blood loss Status: Acute Assessment & Plan: - Will continue to monitor, may need iron replacement (3) HTN (hypertension) Status: Chronic Assessment & Plan: - Restarted home meds Qualifiers: Qualified Codes: I10 - Essential (primary) hypertension (4) Hypothyroidism Status: Chronic Assessment & Plan: - Restart home medication LATOYA LAMB MD Dec 16, 2021 14:06
[2021-12-16 15:49] VITALS: BP 168/73
[2021-12-16] MEDS ORDERED: ACETAMINOPHEN 500 MG TAB (TYLENOL) PO PRN (18:45)
[2021-12-16 19:20] VITALS: BP 169/89
[2021-12-16] MEDS: diphenhydrAMINE 50 MG/ML INJ (BENADRYL) IVP PRN (22:12)
[2021-12-17 00:07] VITALS: BP 138/76
[2021-12-17] MEDS: diphenhydrAMINE 50 MG/ML INJ (BENADRYL) IVP PRN (02:07)
[2021-12-17 03:54] VITALS: BP 153/70
[2021-12-17] MEDS: oxyCODONE/APAP 5/325MG (PERCOCET 5) TABLET PO PRN ×4 (05:05→12:59)
[2021-12-17] MEDS ORDERED: LEVOTHYROXINE 125 MCG (LEVOTHROID) TABLET PO SCH (06:30)
[2021-12-17 06:36] LABS: HEMOGLOBIN 8.9 g/dL (11.5-16.0)
--- NOTE | 2021-12-17 06:58 | Progress Note ---
Standard Progress Note Progress Notes/Assess & Plan Date Seen by a Provider: Dec 17, 2021 Time Seen by a Provider: 06:58 Progress/Assessment & Plan no complaints Spinal in effect radiographs--HW well positioned without fracture RLE--2 plus DP pulse with brick cap refill s/p RTKA mobilize as able Final Diagnosis no complaints Vital Signs Date Time Temp Pulse Resp B/P (MAP) Pulse Ox O2 Delivery O2 Flow Rate FiO2 12/17/21 03:54 36.4 103 20 153/70 (97) 94 Room Air 12/17/21 00:07 36.8 102 18 138/76 (96) 96 Room Air 12/16/21 20:06 Room Air 12/16/21 19:20 37.4 98 18 169/89 (115) 96 Room Air 12/16/21 15:49 37.1 104 18 168/73 (104) 96 Room Air 12/16/21 12:00 36.8 100 18 133/58 (83) 90 Room Air 12/16/21 09:00 Room Air 12/16/21 07:44 37.2 95 18 139/66 (90) 94 Room Air I & O 12/17/21 07:00 Intake Total 4140 ml Output Total 2450 ml Balance 1690 ml Laboratory Tests Test 12/17/21 05:29 Range/Units Hemoglobin 8.9 L 11.5-16.0 g/dL Hematocrit 26 L 35-52 % RLE--incision clean and dry. No calf tenderness. Neg Anthony's s/p RTKA PT/OT DC later today if doing well TRINO SANDOVAL MD Dec 17, 2021 06:58
[2021-12-17] MEDS ORDERED: VENlafaxine XR 75 MG (EFFEXOR XR) CAP PO SCH (07:00)
[2021-12-17 07:49] VITALS: BP 126/68
[2021-12-17] MEDS: SENNA W/DOCUSATE (SENOKOT S) TABLET PO SCH (08:42)
[2021-12-17] MEDS: ASPIRIN E.C. 81 MG (ECOTRIN) TAB PO SCH (08:42)
[2021-12-17] MEDS: ENOXAPARIN INJECTION 30 MG/0.3 ML SYR SC SCH (08:43)
[2021-12-17] MEDS ORDERED: NON-FORMULARY MEDICATION 1 EA EA (Venlafaxine HCl (Venlafaxine HCl ER) 150 MG) PO SCH (09:00)
--- NOTE | 2021-12-17 09:11 | Occupational Ther Daily Note ---
OT Current Status-Daily Note Subjective Pt reports pain in L knee as 6/10. She states pain meds were just given prior to OT arrival. Appearance Pt returned to sitting in recliner, breakfast tray set up for her. Mental Status/Objective Patient Orientation: Person, Place, Situation Attachments: IV ADL-Treatment Therapy Code Descriptions/Definitions Functional [place] Measure: 0=Not Assessed/NA 4=Minimal Assistance 1=Total Assistance 5=Supervision or Setup 2=Maximal Assistance 6=Modified [place] 3=Moderate Assistance 7=Complete IndependenceSCALE: Activities may be completed with or without assistive devices. 9-Kgcjcrjttu-tdrhmqi completes the activity by him/herself with no assistance from a helper. 5-Set-up or Clean-up Assistance-helper sets up or cleans up; patient completes activity. [place] assists only prior to or following the activity. 4-Supervision or Touching Assistance-helper provides verbal cues and/or touching/steadying and/or contact guard assistance as patient completes activity. Assistance may be provided throughout the activity or intermittently. 3-Partial/Moderate Assistance-helper does LESS THAN HALF the effort. [place] lifts, holds or supports trunk or limbs, but provides less than half the effort. 2-Substantial/Maximal Assistance-helper does MORE THAN HALF the effort. [place] lifts or holds trunk or limbs and provides more than half the effort. 4-Ybtdcctge-gpkrqk does ALL the effort. Patient does none of the effort to complete the activity. Or, the assistance of 2 or more helpers is required for the patient to complete the activity. If activity was not attempted, code reason: 7-Patient Refused. 9-Not Applicable-not attempted and the patient did not perform the activity before the current illness, exacerbation or injury. 10-Not Attempted due to Environmental Limitations-(lack of equipment, weather restraints, etc.). 88-Not Attempted due to Medical Conditions or Safety Concerns. Eating (QC): 6 Oral Hygiene (QC): 5 Lower Body Dressing (QC): 4 On/Off Footwear: 4 Pt still in significant pain, grimacing (almost to tears) throughout session. Agreeable to practice AE as pt still unable to reach bilateral feet during dressing/bathing tasks. Min verbal cues for improved performance when donning socks with sock aid. No cues on second attempt. Pt does demonstrate difficulty lifting L foot off floor secondary to pain, but was able to manage with cues and time. Mod verbal cues needed for correct use of collating machine operator when threading underwear onto feet but no physical assistance required. She stood with SBA; requires extra time to bring LLE underneath her. Due to increased fear when removing BUE support, cue given to keep one hand on walker and alternate while managing clothing over hips. Post cue, Steadying assist only needed. Education OT Patient Education: Correct positioning, Energy conservation, Modified ADL techniques, Progress toward Goal/Update tx plan, Purpose of tx/functional activities, Reviewed precautions, Rehab process, Safety issues, Use of adapted equipment Teaching Recipient: Patient Teaching Methods: Demonstration, Discussion Response to Teaching: Verbalize Understanding, Return Demonstration, Reinforcement Needed OT Residential Goals Agile Test Lead Goals Time Frame: Dec 25, 2021 Toileting Hygiene (QC): 4 Upper Body Dressing (QC): 5 Lower Body Dressing (QC): 4 On/Off Footwear (QC): 4 1=Demonstrate adherence to instructed precautions during ADL tasks. 2=Patient will verbalize/demonstrate understanding of assistive devices/modifications for ADL. 3=Patient will improve strength/tolerance for activity to enable patient to perform ADL's. OT Education/Plan Problem List/Assessment Assessment: Decreased Activ Tolerance, Decreased Safety Aware, Impaired Cognition, Impaired Funct Balance, Impaired I ADL's, Impaired Self-Care Skills Discharge Recommendations Plan/Recommendations: Continue POC Equpiment Recommendations-D/C: Housekeeper Cleaning Cooking, Sock Aide Treatment Plan/Plan of Care Treatment,Training & Education: Yes Patient would benefit from OT for education, treatment and training to promote independence in ADL's, mobility, safety and/or upper extremity function for ADL's. Plan of Care: ADL Retraining, Functional Mobility, Group Exercise/Act as Ind, UE Funct Exercise/Act Treatment Duration: Dec 25, 2021 Frequency: 5 times per week Estimated Hrs Per Day: .25 hour per day Agreement: Yes Rehab Potential: Fair Time/GCodes Start Time: 08:47 Stop Time: 09:04 Total Time Billed (hr/min): 17 Billed Treatment Time 1 visit ADL Estefania Hanson OT Dec 17, 2021 09:11
--- NOTE | 2021-12-17 09:36 | Physical Therapy Daily Note ---
PT Daily Note-Current Subjective Patient reports frustration and increase in anxiety. RN in to issue medication. Pain Numeric Pain Scale: 10-Worst Possible Pain Location: Right Location Body Site: Knee Pain Description: Acute Mental Status Patient Orientation: Normal For Age Transfers SCALE: Activities may be completed with or without assistive devices. 0-Ryzvwlgyrv-yywonzu completes the activity by him/herself with no assistance from a helper. 5-Set-up or Clean-up Assistance-helper sets up or cleans up; patient completes activity. [place] assists only prior to or following the activity. 4-Supervision or Touching Assistance-helper provides verbal cues and/or touching/steadying and/or contact guard assistance as patient completes activity. Assistance may be provided throughout the activity or intermittently. 3-Partial/Moderate Assistance-helper does LESS THAN HALF the effort. [place] lifts, holds or supports trunk or limbs, but provides less than half the effort. 2-Substantial/Maximal Assistance-helper does MORE THAN HALF the effort. [place] lifts or holds trunk or limbs and provides more than half the effort. 1-Mwewqjhcy-ntpzli does ALL the effort. Patient does none of the effort to complete the activity. Or, the assistance of 2 or more helpers is required for the patient to complete the activity. If activity was not attempted, code reason: 7-Patient Refused. 9-Not Applicable-not attempted and the patient did not perform the activity before the current illness, exacerbation or injury. 10-Not Attempted due to Environmental Limitations-(lack of equipment, weather restraints, etc.). 88-Not Attempted due to Medical Conditions or Safety Concerns. Lying to Sitting/Side of Bed(Q: 6 Sit to Stand (QC): 4 Chair/Ujl-uh-Akzez Xfer(QC): 4 Toilet Transfer (QC): 4 Weight Bearing Right Lower Extremity: Right Weight Bearing/Tolerated Gait Training Distance: 200' Walk 10 feet (QC): 4 Walk 50 ft with 2 Turns(QC): 4 Walk 150 ft (QC): 4 Gait Assistive Device: FWW slow, steady, antalgic gait sequenc with SBA Exercises Supine Ex: Ankle pumps, Quad Set, Heel Slides, Straight leg raise Supine Reps: 15 (x 2 sets) Seated Therapy Exercises: Long arc quads Seated Reps: 15 Standing: Marching (right LE in FWW) Assessment Patient requires time to complete all tasks. PT AAROM right LE knee flexion. Patient able to perform activity SBA to independently. PT encouraged patient to eat breakfast and take a shower this morning to assist with relaxation. Patient voices understand and nursing notified. PT Warp Hand Goals Prison Goals PT Prison Goals Time Frame: Dec 22, 2021 Roll Left & Right (QC): 6 Sit to Lying (QC): 6 Lying-Sitting on Side/Bed(QC): 6 Sit to Stand (QC): 4 Chair/Geq-hm-Vktoh Xfer(QC): 4 Walk 10 feet (QC): 4 Walk 50ft with 2 Turns (QC): 4 Walk 150 ft (QC): 4 PT Plan Treatment/Plan Treatment Plan: Continue Plan of Care Treatment Plan: Bed Mobility, Education, Functional Activity Merrill, Functional Strength, Gait, Safety, Therapeutic Exercise, Transfers Treatment Duration: Dec 22, 2021 Frequency: 11 times per week Estimated Hrs Per Day: .25 hour per day Patient and/or Family Agrees t: Yes Time/GCodes Time In: 745 Time Out: 830 Total Billed Treatment Time: 45 Total Billed Treatment 1 visit EX x 2 25 min GT 20 min DAVIN VOGEL PT Dec 17, 2021 09:36
--- NOTE | 2021-12-17 10:34 | Progress Note - Hospitalist ---
Subjective HPI/CC On Admission Date Seen by Provider: Dec 17, 2021 Time Seen by Provider: 11:30 Subjective/Events-last exam Pt is doing well Ready for discharge tomorrow or tonight Hemoglobin was 8.9 Exam is normal Review of Systems General: Fatigue, Malaise Musculoskeletal: leg pain Objective Exam Vital Signs Vital Signs Date Time Temp Pulse Resp B/P (MAP) Pulse Ox O2 Delivery O2 Flow Rate FiO2 12/17/21 14:40 36.0 103 18 114/53 95 Room Air Capillary Refill : Less Than 3 Seconds General Appearance: No Apparent Distress, WD/WN, Chronically ill Respiratory: Lungs Clear, Normal Breath Sounds Cardiovascular: Regular Rate, Rhythm Results/Procedures Lab Laboratory Tests 12/17/21 05:29 Patient resulted labs reviewed. Assessment/Plan Assessment and Plan Assess & Plan/Chief Complaint RIght knee replacement uncomplicated Post op anemia CAMILLE LEVIN DO Dec 17, 2021 10:34
[2021-12-17 12:00] VITALS: BP 114/53
--- NOTE | 2021-12-17 13:32 | Physical Therapy Daily Note ---
PT Daily Note-Current Subjective Patient up with family in room. Mental Status Patient Orientation: Normal For Age Transfers SCALE: Activities may be completed with or without assistive devices. 4-Larvhliouo-heazwbk completes the activity by him/herself with no assistance from a helper. 5-Set-up or Clean-up Assistance-helper sets up or cleans up; patient completes activity. [place] assists only prior to or following the activity. 4-Supervision or Touching Assistance-helper provides verbal cues and/or touching/steadying and/or contact guard assistance as patient completes activity. Assistance may be provided throughout the activity or intermittently. 3-Partial/Moderate Assistance-helper does LESS THAN HALF the effort. [place] lifts, holds or supports trunk or limbs, but provides less than half the effort. 2-Substantial/Maximal Assistance-helper does MORE THAN HALF the effort. [place] lifts or holds trunk or limbs and provides more than half the effort. 6-Hrakejhte-bcbobi does ALL the effort. Patient does none of the effort to complete the activity. Or, the assistance of 2 or more helpers is required for the patient to complete the activity. If activity was not attempted, code reason: 7-Patient Refused. 9-Not Applicable-not attempted and the patient did not perform the activity before the current illness, exacerbation or injury. 10-Not Attempted due to Environmental Limitations-(lack of equipment, weather restraints, etc.). 88-Not Attempted due to Medical Conditions or Safety Concerns. Sit to Stand (QC): 6 Weight Bearing Right Lower Extremity: Right Weight Bearing/Tolerated Exercises Supine Ex: Ankle pumps, Quad Set, Heel Slides, Straight leg raise Supine Reps: 15 (in recliner with bilateral LE elevated.) Seated Therapy Exercises: Ankle pumps, Long arc quads Seated Reps: 15 (x 2 sets) Assessment Reviewed HEP with patient and family physician issued at pre op. Patient progressing with treatment plan and will dismiss to home on this date. PT Sewing Teacher Goals Sewing Teacher Goals PT Retirement Goals Time Frame: Dec 22, 2021 Roll Left & Right (QC): 6 Sit to Lying (QC): 6 Lying-Sitting on Side/Bed(QC): 6 Sit to Stand (QC): 4 Chair/Cme-tb-Hkhtf Xfer(QC): 4 Walk 10 feet (QC): 4 Walk 50ft with 2 Turns (QC): 4 Walk 150 ft (QC): 4 PT Plan Treatment/Plan Treatment Plan: Discontinue PT, goals met Treatment Plan: Bed Mobility, Education, Functional Activity Merrill, Functional Strength, Gait, Safety, Therapeutic Exercise, Transfers Treatment Duration: Dec 22, 2021 Frequency: 11 times per week Estimated Hrs Per Day: .25 hour per day Patient and/or Family Agrees t: Yes Time/GCodes Time In: 1300 Time Out: 1316 Total Billed Treatment Time: 16 Total Billed Treatment 1 visit EX 16 min DAVIN VOGEL PT Dec 17, 2021 13:32
[2021-12-17 14:40] VITALS: BP 114/53
--- NOTE | 2021-12-18 03:24 | DISCHARGE SUMMARY ---
DATE OF SERVICE: 12/17/2021 DIAGNOSES: 1. Right knee primary osteoarthritis. 2. History of brain aneurysm. 3. Hypertension. PROCEDURE: Right total knee arthroplasty. SUMMARY: The patient is a 66-year-old female who underwent a right total knee arthroplasty on the day of admission. Postoperatively, she progressed well. At time of discharge, her wound was clean and dry. She had no calf tenderness. Negative Homans sign. She was tolerating diet well and tolerating pain with oral pain medication. CONDITION AT DISCHARGE: Good. DISCHARGE DIET: Regular. FOLLOWUP: Followup is in three weeks. ACTIVITIES: Weightbearing as tolerated with a walker. DISCHARGE MEDICATIONS: Home medications, Percocet as needed for pain and aspirin. Job ID: [id number] DocumentID: [id number] Dictated Date: 12/17/2021 06:56:37 Film Processing Supervisor Date: 12/18/2021 03:23:58 Dictated By: TRINO SANDOVAL MD
--- NOTE | 2021-12-19 14:41 | Anesthesia-Regional Post-Op ---
Regional Patient Condition Mental Status: Alert, Oriented x3 Circulation: Same as Pre-Op Headache: Absent Sensation: Full Recovery Motor Block: Absent Post Op Complications Complications None Follow Up Care/Instructions Patient Instructions None needed. Anesthesia/Patient Condition Patient is doing well, no complaints, stable vital signs, no apparent adverse anesthesia problems. ERIN GLASS CRNA Dec 19, 2021 14:41
== END 2021-12-17 14:25 | disposition home health service (06) | DRG 470 ==
LOC: 4TH 05:54 → SURG 05:55 → 4TH 10:00
PROVIDERS: ADMIT Orthopaedic Surgery; ATTEND Orthopaedic Surgery
PROC: 0SRC0J9 Replacement of Right Knee Joint with Synthetic Substitute, Cemented, Open Approach (ICD-10-PCS; principal; 2021-12-15 07:40)
DX: M17.11 Unilateral primary osteoarthritis, right knee (principal); D62 Acute posthemorrhagic anemia; I10 Essential (primary) hypertension; F32.A Depression, unspecified; E03.9 Hypothyroidism, unspecified; I67.1 Cerebral aneurysm, nonruptured
CPT/HCPCS: 36415; 73560; 85014; 85018; 86850; 86900; 86901